=== PATIENT | male | born 1975 | race Caucasian/White ===

== ENCOUNTER 2020-01-10 11:07 | Emergency (ER) | payer OTHER, SELFPAY ==
--- NOTE | ~2020-01-10 | XR_ITS ---
EXAMINATION: XR forearm RT 2V DATE: 01/10/2020 12:31 INDICATION: Radial sided right wrist pain. Fall. TECHNIQUE: 2 views of right forearm on 3 radiographs were obtained. COMPARISON: None. FINDINGS: Bone alignment is normal. No fracture. Joint spaces are well maintained. There is no elbow joint effusion. IMPRESSION: 1. Normal right forearm. Reviewed, dictated and finalized at location A. D'S NURSE IMPRESSION: 1. Normal right forearm.
--- NOTE | ~2020-01-10 | XR_ITS ---
EXAMINATION: XR wrist RT min 3V DATE: 01/10/2020 11:51 INDICATION: Radial sided right wrist pain. TECHNIQUE: Posteroanterior, oblique, and lateral views of the right wrist were obtained. COMPARISON: none FINDINGS: Alignment is normal. No fracture. Joint spaces are normal. Mild soft tissue swelling over the dorsum of the carpus. IMPRESSION: 1. No osseous abnormality. Reviewed, dictated and finalized at location A. [employer] IMPRESSION: 1. No osseous abnormality.
[2020-01-10 11:21] VITALS: BP 123/77; PULSE 78; RESP 18; TEMP 37; O2SAT 99
--- NOTE | 2020-01-10 13:03 | ED.UPPEXIN ---
HPI - Extremity Injury (Upper) General Chief Complaint: Extremity Injury, Upper Stated Complaint: R wrist injury Time Seen by Provider: 01/10/20 11:32 Source: patient Mode of arrival: ambulatory Limitations: no limitations History of Present Illness HPI narrative: This is a 44 year old male that presents to the ER for right wrist pain after an injury last night. Reports he slipped down the stairs. Reports trying to catch himself with his right wrist. Since he has had pain in the right wrist especially on the thumb side. Pain is worse with movement and relieved with rest. He has been taking ibuprofen with little relief. Denies hitting his head, other injuries, weakness, or numbness. Related Data Home Medications Medication Instructions Recorded Confirmed No Home Medications 01/10/20 01/10/20 Allergies Allergy/AdvReac Type Severity Reaction Status Date / Time codeine Allergy Unknown Unknown Verified 01/10/20 11:21 Review of Systems Review of Systems: Narrative: CONSTITUTIONAL: Denies fever MUSCULOSKELETAL: Reports joint pain, and myalgia. NEUROLOGIC: Denies numbness, or weakness. All systems reviewed & are unremarkable except as noted in HPI and below PMFSH Social History Social History (Updated 01/10/20 @ 13:36 by Pita Tovar PA-C) Smoking status: Current every day smoker Substance use: never Gender identity (if verbalized by the patient): Male Exam Narrative: Exam Narrative: GENERAL: Well-appearing, well-nourished, and in no acute distress. HEAD: Normocephalic, atraumatic. EYES: PERRLA and EOMI. ENT: Nares clear, no rhinorrhea or epistaxis. Mucous membranes moist. Oropharynx without tonsillar hypertrophy exudate or other lesions. Bilateral TMs pearly graham non-bulging NECK: Supple. No adenopathy or masses. No carotid bruits or JVD CHEST: Clear to auscultation. No respiratory distress. No wheezes rales or rhonchi HEART: Regular rate and rhythm. No murmur heard. Normal peripheral pulses. ABDOMEN: Soft, nontender, nondistended, normal active bowel sounds. EXTREMITIES: Normal range of motion. No edema or obvious deformity. Normal radial pulses. No snuff box tenderness. Tender to palpation of the right distal radial bone SKIN: Warm, dry, no rash. NEURO: No focal deficits. Alert and oriented x3. PSYCH: Normal mood and affect Course Vital Signs Vital signs: Vital Signs Temperature 98.6 F 01/10/20 11:21 Pulse Rate 78 01/10/20 11:21 Respiratory Rate 18 01/10/20 11:21 Blood Pressure 123/77 01/10/20 11:21 Pulse Oximetry 99 01/10/20 11:21 Temperature 98.6 F 01/10/20 11:21 Pulse Rate 78 01/10/20 11:21 Respiratory Rate 18 01/10/20 11:21 Blood Pressure 123/77 01/10/20 11:21 Pulse Oximetry 99 01/10/20 11:21 MDM - Extremity Injury (Upper) MDM Narrative Medical decision making narrative: Patient presents the emergency department for right wrist pain after an injury last night. Right wrist and forearm x-rays are without acute changes. Patient was instructed on care wrist pain. He is to follow-up with primary care doctor. He was given warnings to return the ER Imaging Data Radiologist's impression: ITS Impressions Wrist X-Ray 01/10/20 12:06 IMPRESSION: 1. No osseous abnormality. Forearm X-Ray 01/10/20 12:35 IMPRESSION: 1. Normal right forearm. Critical Care Time Critical Care Time Critical Care Time: No Discharge Plan Discharge Clinical Impression: Sprain and strain of wrist Patient Disposition: Home, Self-Care Condition: Stable Instructions: Wrist Sprain (ED) Additional Instructions: Return to the emergency department if you experience fever, redness and swelling of your arm, or any other symptoms that are concerning to you Rest. Ice the area. Wear [place] wrap. Tylenol or ibuprofen as needed for pain Follow-up with your primary care doctor Prescriptions: No Action No Home Medications RF: 0 Follow-
[2020-01-10 13:59] VITALS: BP 123/77; PULSE 84; O2SAT 100
--- NOTE | 2020-01-10 14:00 | PC.NURSE ---
Pts right hand and wrist wrapped in edd wrap by erp technical lead before pt left.
== END 2020-01-10 14:00 | disposition home or self-care (01) ==
PROVIDERS: Emergency Provider Emergency Medicine; PCP Nurse Practitioner Family
DX: S63.501A Unspecified sprain of right wrist, initial encounter (principal); S66.911A Strain of unspecified muscle, fascia and tendon at wrist and hand level, right hand, initial encounter; F17.200 Nicotine dependence, unspecified, uncomplicated; W10.9XXA Fall (on) (from) unspecified stairs and steps, initial encounter
CPT/HCPCS: 73090; 73110; 99283; A9270

== ENCOUNTER 2020-01-20 23:40 | Emergency (ER) | payer OTHER, SELFPAY ==
--- NOTE | ~2020-01-20 | CT_ITS ---
EXAMINATION: CT orbit BI w con EXAM DATE: 01/21/2020 02:14 INDICATION: Left eye pain. No known injury. Light sensitivity. TECHNIQUE: Spiral CT of the orbits was acquired in the axial plane following intravenous injection of 75 mL Omnipaque 350. Coronal reformatted images were also reviewed. The dose-length product (DLP) for this examination was 187.58 mGy-cm. The exposure was tailored according to patient size, and ite rative reconstruction (ASIR) was used as additional dose reduction technique. There is no prior stud y for comparison. FINDINGS: The extraocular muscles, optic nerves are symmetric. The retrobulbar fat is clear bilateral ly, the globes are symmetric and unremarkable. There are no areas of abnormal enhancement on the post contrast images. There is mild bilateral ethmoid mucoperiosteal thickening. The mastoid air cells ar e well aerated. IMPRESSION: Unremarkable CT orbit BI w con exam. Reviewed, dictated and finalized at location A.
[2020-01-20 23:46] VITALS: BP 152/97; PULSE 91; RESP 16; TEMP 37.2; O2SAT 99
--- NOTE | 2020-01-21 00:06 | ED.EYEPROB ---
HPI - Eye Problem General Chief complaint: Eye Problems Stated complaint: L eye swelling Time Seen by Provider: 01/21/20 00:01 Source: patient Mode of arrival: ambulatory Limitations: no limitations History of Present Illness HPI Narrative: Pt is a 44 y/o male who presents to the ED with c/o lt eye pain that started this afternoon. He reports associated photophobia. Pt notes that he has been wearing his contacts for the last week and he noticed the pain to his lt eye today. Once he removed his contact from his lt eye, it started swelling and got red. He denies sinus congestion, sore throat, cough, or HAZEL. chief complaint: eye pain Onset (ago): day(s) (today) Onset description: sudden Duration: constant Location: left eye Eye Symptoms: redness, pain and photophobia Context: contact lens use Associated symptoms: none Treatments Prior to Arrival: removed contact lens Related Data Allergies Allergy/AdvReac Type Severity Reaction Status Date / Time codeine Allergy Unknown Unknown Verified 01/21/20 01:08 Review of Systems Review of Systems: All systems reviewed & are unremarkable except as noted in HPI and below Eyes: Eyes: Reports other (lt eye pain, photophobia) ENT: Denies nasal congestion and Denies sore throat Respiratory: Respiratory: Denies cough Neurologic: Denies headache(s) PMFSH Past Medical History Medical History (Updated 01/21/20 @ 03:03 by Yifan Méndez MD) No significant past medical history Surgical History Surgical History (Updated 01/21/20 @ 00:29 by Jennifer Moore) H/O hernia repair H/O vasectomy Social History Social History Smoking status: Current every day smoker Substance use: never Gender identity (if verbalized by the patient): Male Exam Narrative: Exam Narrative: GENERAL: Uncomfortable-appearing, well-nourished, and in no acute distress. HEAD: Normocephalic, atraumatic. EYES: PERRL and EOMI. left eye with scleral injection. Fluorescein staining used and no obvious abrasion to the cornea with Carter lamp. Patient unable to tolerate slit-lamp evaluation. No periorbital edema or erythema. Conjunctiva also injected. ENT: Mucous membranes moist. EXTREMITIES: Normal range of motion. Normal strength. NEURO: Alert and oriented x3 Course Course Emergency Course: Patient informed of results. Offered transfer to [facility] or [facility] for ophthalmologic evaluation and she is declined. Patient has follow-up with eye doctor this morning. Will treat with erythromycin, suspect he may have a keratitis given his photophobia and recent contact lens use. Vital Signs Vital signs: Vital Signs Temperature 98.9 F 01/20/20 23:46 Pulse Rate 91 01/20/20 23:46 Respiratory Rate 16 01/20/20 23:46 Blood Pressure 152/97 H 01/20/20 23:46 Pulse Oximetry 99 01/20/20 23:46 Temperature 98.9 F 01/21/20 01:53 Pulse Rate 91 01/20/20 23:46 Respiratory Rate 16 01/20/20 23:46 Blood Pressure 152/97 H 01/20/20 23:46 Pulse Oximetry 99 01/20/20 23:46 MDM - Eye Problem Lab Data Result diagrams: 01/21/20 01:23 01/21/20 01:23 Labs: Lab Results 01/21/20 01/21/20 Range/Units 01:23 01:23 WBC 11.4 H (4.5-10.0) K/mm3 RBC 4.88 (4.6-6.20) M/mm3 Hgb 16.0 (14.0-18.0) g/dL Hct 47.0 (42.0-52.0) % MCV 96.3 (80-100) fl MCH 32.8 (26-34) pg MCHC 34.0 (32-36) g/dl RDW 13.4 (11.5-14.5) % Plt Count 288 (150-375) k/mm3 MPV 10.0 (7.4-10.4) fl Immature Gran % (Auto) 0.3 (0-0.5) % Neut % (Auto) 62.2 (45.5-73.1) % Lymph % (Auto) 27.2 (18.3-44.2) % [place] % (Auto) 7.3 (2.6-8.5) % Eos % (Auto) 2.6 (0-4.4) % Baso % (Auto) 0.4 (0.2-1.2) % Lymph # (Auto) 3.10 (0.9-3.2) K/mm3 [place] # (Auto) 0.8 H (0.1-0.6) K/mm3 Eos # (Auto) 0.3 (0-0.3) K/mm3 Baso # (Auto) 0.1 (0.0-0.1) K/mm3 Abs Immat Gran (auto) 0.03 (0.00-0.031) K
[2020-01-21] MEDS: MORPHINE SULFATE 4 MG/ML INJ IV PUSH (01:23)
[2020-01-21 01:29] LABS: Basophils Absolute Auto 0.1 K/mm3 (0.0-0.1); Basophils Percent Auto 0.4 % (0.2-1.2); Eosinophils Absolute Auto 0.3 K/mm3 (0-0.3); Eosinophils Percent Auto 2.6 % (0-4.4); Immature Granulocyte Absolute 0.03 K/mm3 (0.00-0.031); Immature Granulocyte Percent A 0.3 % (0-0.5); Lymphocytes Percent Auto 27.2 % (18.3-44.2); Mean Corpuscular Hemoglobin 32.8 pg (26-34); Mean Corpuscular Volume 96.3 fl (80-100); Monocytes Absolute Auto 0.8 K/mm3 (0.1-0.6); Monocytes Percent Auto 7.3 % (2.6-8.5); Neutrophils Absolute Auto 7.1 K/mm3 (1.3-6.7); Neutrophils Percent Auto 62.2 % (45.5-73.1); Platelet Count Result 288 k/mm3 (150-375); Red Blood Count 4.88 M/mm3 (4.6-6.20); Red Cell Distribution Width 13.4 % (11.5-14.5); White Blood Count 11.4 K/mm3 (4.5-10.0)
[2020-01-21 01:50] LABS: Blood Urea Nitrogen 12 mg/dL (9-20); Calcium 9.1 mg/dL (8.4-10.2); Carbon Dioxide 32 mmol/L (22-30); Chloride 100 mmol/L (98-107); Estimated CRCL calculation 92 ml/min; Estimated Glomerular Filt Rate > 60; Glucose 113 mg/dL (75-110); Potassium 4.6 mmol/L (3.4-5.0); Sodium 137 mmol/L (137-145)
[2020-01-21 01:53] VITALS: TEMP 37.2
[2020-01-21 03:18] VITALS: BP 136/97; PULSE 94; RESP 16; TEMP 36.3; O2SAT 96
== END 2020-01-21 03:21 | disposition home or self-care (01) ==
PROVIDERS: Emergency Provider Emergency Medicine
DX: H18.822 Corneal disorder due to contact lens, left eye (principal); H16.8 Other keratitis; F17.200 Nicotine dependence, unspecified, uncomplicated
CPT/HCPCS: 36415; 70481; 80048; 85025; 99284; A9270; J2270; Q9967

== ENCOUNTER 2020-05-12 09:00 | Emergency (ER) | payer OTHER, SELFPAY ==
--- NOTE | ~2020-05-12 | CT_ITS ---
EXAMINATION: CT abdomen pelvis w con DATE: 05/12/2020 10:23 INDICATION: Right flank pain. TECHNIQUE: Computed tomography (CT) of the abdomen and pelvis was performed with 100 mL Omnipaque 350 intravenous contrast. Automated exposure control and iterative reconstruction technique were employe d. The dose-length product was 478.48 mGy-cm. COMPARISON: None. FINDINGS: The visualized portions of the lung bases demonstrate mild atelectasis. No pleural effusion . The heart size is normal. No pericardial effusion. The liver, gallbladder, spleen, pancreas, adrena l glands, and left kidney are normal. There is a decreased right-sided contrast nephrogram. There is mild right hydronephrosis and hydroureter. There is a 3 mm stone at right ureterovesicular junction. There is diverticulosis of the colon without evidence of diverticulitis. There are no dilated loops o f bowel. The appendix is normal. There are no pathologically enlarged lymph nodes. There is no free i ntraperitoneal fluid. There is lumbar levoscoliosis and mild spondylosis. IMPRESSION: 1. 3 mm stone at right ureterovesicular junction with mild right hydronephrosis and hydroureter. Reviewed, dictated and finalized at location A.
[2020-05-12 09:04] VITALS: BP 134/86; PULSE 83; RESP 16; TEMP 36.7; O2SAT 99
[2020-05-12 09:26] LABS: Basophils Absolute Auto 0.1 K/mm3 (0.0-0.1); Basophils Percent Auto 0.6 % (0.2-1.2); Eosinophils Absolute Auto 0.3 K/mm3 (0-0.3); Eosinophils Percent Auto 2.7 % (0-4.4); Hemoglobin 15.3 g/dL (14.0-18.0); Immature Granulocyte Absolute 0.04 K/mm3 (0.00-0.031); Immature Granulocyte Percent A 0.4 % (0-0.5); Lymphocytes Absolute Auto 3.36 K/mm3 (0.9-3.2); Lymphocytes Percent Auto 31.8 % (18.3-44.2); Mean Corpuscular Hemoglobin 31.5 pg (26-34); Mean Corpuscular Volume 92.8 fl (80-100); Monocytes Absolute Auto 0.9 K/mm3 (0.1-0.6); Monocytes Percent Auto 8.7 % (2.6-8.5); Neutrophils Absolute Auto 5.9 K/mm3 (1.3-6.7); Neutrophils Percent Auto 55.8 % (45.5-73.1); Platelet Count Result 265 k/mm3 (150-375); Red Blood Count 4.85 M/mm3 (4.6-6.20); Red Cell Distribution Width 12.9 % (11.5-14.5); White Blood Count 10.6 K/mm3 (4.5-10.0)
[2020-05-12 09:35] LABS: Blood Urea Nitrogen 17 mg/dL (9-20); Calcium 9.7 mg/dL (8.4-10.2); Carbon Dioxide 25 mmol/L (22-30); Chloride 103 mmol/L (98-107); Estimated CRCL calculation 70 ml/min; Estimated Glomerular Filt Rate > 60; Glucose 138 mg/dL (75-110); Potassium 4.1 mmol/L (3.4-5.0); Sodium 137 mmol/L (137-145)
[2020-05-12] MEDS: MORPHINE SULFATE 4 MG/ML INJ IV PUSH (09:36)
[2020-05-12 09:44] LABS: Add Urine Microscopic? YES; Appearance Urine Cloudy (Clear); Bilirubin Urine Negative (Negative); Blood Urine 3+ (Negative); Budding Yeast Urine Present /hpf; Glucose Urine UA Negative (Negative); Ketones Urine Negative (Negative); Leukocyte Esterase Ur Negative LEU/UL (Negative); Mucus Urine Heavy /lpf; Nitrate Urine Positive (Negative); Protein Urine 2+ mg/dL (Negative); RBC Urine >75 /hpf (0-2)
[2020-05-12 09:48] LABS: Specific Grav Ur 1.034 (1.001-1.035)
[2020-05-12 09:49] LABS: Color Urine Brown (Yellow)
--- NOTE | 2020-05-12 09:59 | ED.ABDPAIN ---
HPI - Abdominal Pain General Chief Complaint: Back Pain/Injury Stated Complaint: right flank pain Time Seen by Provider: 05/12/20 09:49 History of Present Illness HPI narrative: Patient presents to the ED with a history of kidney stones and excruciating right flank pain. He is also feeling nauseated. Says the pain is 15 out of 10. He had already received 4 of morphine without improvement. MD elicited complaint: flank pain Pertinent past history: kidney stones Onset (ago): hour(s) Related Data Allergies Allergy/AdvReac Type Severity Reaction Status Date / Time codeine Allergy Unknown Unknown Verified 05/12/20 09:06 Review of Systems Review of Systems: Narrative: CONSTITUTIONAL: Denies fever, chills, or sweats. EYES: Denies visual changes, redness, or discharge. ENT: Denies rhinorrhea, congestion, sore throat, or otalgia. CARDIOVASCULAR: Denies chest pain, palpitations, or edema. RESPIRATORY: Denies cough or dyspnea. GASTROINTESTINAL: He has abdominal pain, nausea, vomiting, but not diarrhea. GENITOURINARY: Denies dysuria or hematuria. SKIN: Denies rash or itching. MUSCULOSKELETAL: Denies back pain, joint pain, or myalgia. NEUROLOGIC: Denies headache, numbness, or weakness. PSYCHIATRIC: Denies anxiety or depression. [facility] Past Medical History Medical History (Updated 05/15/20 @ 19:26 by Kaila Talamantes MD) Kidney stones Surgical History Surgical History H/O hernia repair H/O vasectomy Social History Social History Smoking status: Current every day smoker Substance use: never Gender identity (if verbalized by the patient): Male Exam Narrative: Exam Narrative: GENERAL: Adult man writhing in pain. HEAD: Normocephalic, atraumatic. EYES: PERRLA and EOMI. ENT: Nares clear, no rhinorrhea or epistaxis. Mucous membranes moist. NECK: Supple. CHEST: Clear to auscultation. No respiratory distress. HEART: Regular rate and rhythm. No murmur heard. Normal peripheral pulses. ABDOMEN: Soft, nontender, nondistended, normal active bowel sounds. EXTREMITIES: Normal range of motion. No edema. SKIN: Warm, diaphoretic, no rash. NEURO: No focal deficits. Alert and oriented x3. PSYCH: Normal mood and affect. Const: General: diaphoretic Course Vital Signs Vital signs: Vital Signs Temperature 98.1 F 05/12/20 09:04 Pulse Rate 83 05/12/20 09:04 Respiratory Rate 16 05/12/20 09:04 Blood Pressure 134/86 05/12/20 09:04 Pulse Oximetry 99 05/12/20 09:04 Temperature 98.1 F 05/12/20 09:04 Pulse Rate 79 05/12/20 14:58 Respiratory Rate 17 05/12/20 14:58 Blood Pressure 128/75 05/12/20 14:58 Pulse Oximetry 98 05/12/20 14:58 MDM - Abdominal Pain Medical Records Attestation: I reviewed the patient's medical records. Lab Data Attestation: I reviewed the patient's lab results. Result diagrams: 05/12/20 09:16 05/12/20 09:16 Labs: Lab Results 05/12/20 05/12/20 05/12/20 Range/Units 09:16 09:16 09:30 WBC 10.6 H (4.5-10.0) K/mm3 RBC 4.85 (4.6-6.20) M/mm3 Hgb 15.3 (14.0-18.0) g/dL Hct 45.0 (42.0-52.0) % MCV 92.8 (80-100) fl MCH 31.5 (26-34) pg MCHC 34.0 (32-36) g/dl RDW 12.9 (11.5-14.5) % Plt Count 265 (150-375) k/mm3 MPV 10.0 (7.4-10.4) fl Immature Gran % (Auto) 0.4 (0-0.5) % Neut % (Auto) 55.8 (45.5-73.1) % Lymph % (Auto) 31.8 (18.3-44.2) % [place] % (Auto) 8.7 H (2.6-8.5) % Eos % (Auto) 2.7 (0-4.4) % Baso % (Auto) 0.6 (0.2-1.2) % Lymph # (Auto) 3.36 H (0.9-3.2) K/mm3 [place] # (Auto) 0.9 H (0.1-0.6) K/mm3 Eos # (Auto) 0.3 (0-0.3) K/mm3 Baso # (Auto) 0.1 (0.0-0.1) K/mm3 Abs Immat Gran (auto) 0.04 H (0.00-0.031) K/mm3 Absolute Neuts (auto) 5.9 (1.3-6.7) K/mm3 Absolute Nucleated RBC 0.0 (0.0-0.012) K/mm3 Nucleated RBC % 0.0 (0.0-0.2) % [place]
[2020-05-12] MEDS: SODIUM CHLORIDE 0.9% IV 1,000 ML 999 ML IV CONT ×2 (10:06→13:53)
[2020-05-12] MEDS: ONDANSETRON INJ 4 MG/2 ML VIAL IV PUSH (10:06)
[2020-05-12 12:04] VITALS: BP 145/89; PULSE 79; O2SAT 98
[2020-05-12] MEDS: oxyCODONE/ACETAMINOPHEN 5-325 MG TABLET 2 TABLET PO (13:53)
[2020-05-12 13:57] VITALS: BP 145/85; PULSE 98; RESP 17; O2SAT 98
[2020-05-12 14:58] VITALS: BP 128/75; PULSE 79; RESP 17; O2SAT 98
== END 2020-05-12 15:02 | disposition home or self-care (01) ==
PROVIDERS: Emergency Provider Emergency Medicine
DX: N13.2 Hydronephrosis with renal and ureteral calculous obstruction (principal); N39.0 Urinary tract infection, site not specified; F17.200 Nicotine dependence, unspecified, uncomplicated; Z87.442 Personal history of urinary calculi
CPT/HCPCS: 36415; 74177; 80048; 81001; 85025; 96361; 96365; 96375; 96376; 99284; A9270; J0696; J1170; J2270; J2405; J7030; Q9967

== ENCOUNTER 2021-05-27 18:04 | Emergency (ER) | payer OTHER, SELFPAY ==
--- NOTE | ~2021-05-27 | XR_ITS ---
EXAMINATION: XR chest 2V EXAM DATE: 05/27/2021 18:27 INDICATION: Chest pain/center into LT arm/yesterday/smoker/hx asthma. TECHNIQUE: Frontal and lateral projections of the chest obtained and reviewed. Comparison is made to prior examination from 07/18/2019. FINDINGS: The lungs are clear. There are no pleural effusions. The cardiomediastinal silhouette is within normal limits. There is no pneumothorax suspected. The bones and soft tissues are unremarkab le. IMPRESSION: No acute cardiopulmonary findings. Reviewed, dictated and finalized at location A.
[2021-05-27 18:18] VITALS: BP 131/92; PULSE 88; RESP 20; TEMP 36.9; O2SAT 99
--- NOTE | 2021-05-27 18:19 | ED.CHESTPAIN ---
HPI - Chest Pain General Chief Complaint: Chest Pain Stated Complaint: Chest pain Time Seen by Provider: 05/27/21 18:20 Source: patient Mode of arrival: ambulatory Limitations: no limitations History of Present Illness HPI narrative: Bg De La Rosa is a 45 yo male with high cholesterol, BPH, migraines, [facility] of chest pain that started yesterday and has been constant that he describes as being constant at 3/10. Last night, pain midsternal straight through to the back . Has nausea, periods of diaphoresis. Blood Pressure is elevated on arrival. Heart score: +3 but need blood work - he is 45, he smokes, takes cholesterol medicine - denies other CAD, has prior family history. Needs troponin. Had a prior stress test about 2 years ago that was clear; saw PCP 2 to 3 weeks ago had blood work but no EKG or other cardiology work-up Related Data Home Medications Medication Instructions Recorded Confirmed albuterol sulfate INHALATION 05/27/21 atorvastatin 05/27/21 ergocalciferol (vitamin D2) 05/27/21 sumatriptan succinate mg PO 05/27/21 Allergies Allergy/AdvReac Type Severity Reaction Status Date / Time codeine Allergy Unknown Unknown Verified 05/12/20 09:06 Review of Systems Review of Systems: Narrative: CONSTITUTIONAL: Denies fever, chills, sweats. EYES: Denies visual changes, redness, discharge. ENT: Denies rhinorrhea, congestion, sore throat, otalgia. CARDIOVASCULAR:has chest pain, palpitations, edema. RESPIRATORY: Denies dyspnea, wheezing, cough GASTROINTESTINAL: Denies abdominal pain, has nausea, vomiting, diarrhea. GENITOURINARY: Denies dysuria, hematuria, abnormal discharge SKIN: Denies rash or itching. NEUROLOGIC: Denies numbness, or focal weakness. PSYCHIATRIC: Denies anxiety or depression. [facility] Past Medical History Medical History High cholesterol Kidney stones Surgical History Surgical History H/O hernia repair H/O vasectomy Social History Social History Smoking status: Current every day smoker Substance use: never Gender identity (if verbalized by the patient): Male Comments At time of signature, I agree with nursing past medical, surgical, social and family history. There is no relevant family history pertinent to the presenting complaint. Blood pressure is elevated here; she was being transferred to the hospital for further work-up Exam Narrative: Exam Narrative: GENERAL: This is a well-nourished, well-developed patient, in moderate distress. Rates pain 3 out of 10 is anxious HEAD: normocephalic, atraumatic. EYES: Sclera clear/white. Vision is grossly intact. EARS: External ears normal, . Hearing grossly intact. NOSE: External nose normal without nasal discharge, no rhinorrhea. THROAT: Mucous membranes moist, NECK: Neck supple, non-tender CARDIOVASCULAR: Regular rate and rhythm without murmurs, gallops, or rubs. RESPIRATORY: Clear to auscultation. Breath sounds equal bilaterally. No wheezes, rales, or rhonchi. GASTROINTESTINAL: Abdomen soft, SKIN: warm, intact with no suspicious lesions or rash, good texture and turgor. NEURO: awake, alert, and oriented to person, place and time. There were no obvious focal neurologic abnormalities. Steady gait EXTREMITIES: Normal range of motion. BACK: Nontender without deformity Course Course Emergency Course: [facility] 24 hours of chest pain with occasional diaphoresis EKG shows heart rate of 88, no axis deviation, no ST elevation, no QT prolongation, normal sinus rhythm chest Xray shows- no acute cardiopulmonary findings Will need to be transreferred to the ER for blood work and troponins, although his heart score is in the low risk category (without trop) Vital Signs Vital signs: Vital Signs Temperature 98.5
--- NOTE | 2021-05-27 18:26 | PC.NURSE ---
1824- Per verbal order- Yusra Terrazas Aspirin 324 mg given PO. Verified prior to administration by Nathaniel rCuz.
--- NOTE | 2021-05-27 18:28 | ECG_ITS ---
Measurements Intervals [place] Rate: 88 P: 26 KS: 140 QRS: 68 QRSD: 98 T: 40 QT: 350 QTc: 425 Interpretive Statements SINUS RHYTHM BASELINE ARTIFACT- AVR NORMAL ECG Electronically Signed On 05-28-2021 8:01:17 CDT by Navarro Garcia D.O.
== END 2021-05-27 18:52 | disposition short-term general hospital (02) ==
PROVIDERS: Emergency Provider Nurse Practitioner; PCP Physician Assistant
DX: R07.89 Other chest pain (principal); E78.00 Pure hypercholesterolemia, unspecified; F17.200 Nicotine dependence, unspecified, uncomplicated
CPT/HCPCS: 71046; 93005; 99213; A9270; G0463